=== PATIENT | female | born 2000 | race Two or more races ===

== ENCOUNTER 2021-07-08 09:39 | Emergency (ER) | payer OTHER ==
[~2021-07-08] VITALS: Ht 154.9 cm; Wt 64.4 kg
[2021-07-08] MEDS ORDERED: ACIDOPHILUS1 EAC3 (10:46)
[2021-07-08] MEDS ORDERED: DOXYLAMINE-PYR1 EACH (10:47)
== END 2021-07-08 19:23 | disposition home or self-care (01) ==
LOC: ER 09:39
DX: O23.42 Unspecified infection of urinary tract in pregnancy, second trimester (principal); N39.0 Urinary tract infection, site not specified; Z3A.16 16 weeks gestation of pregnancy

== ENCOUNTER 2021-08-09 16:28 | Outpatient (CLI) | payer OTHER ==
[~2021-08-09 16:28] MED LIST: ACIDOPHILUS1 EAC3; DOXYLAMINE-PYR1 EACH
== END 2021-08-09 17:32 | disposition home or self-care (01) ==
LOC: PRENATAL 16:28
PROVIDERS: ATTEND Obstetrics & Gynecology Maternal & Fetal Medicine
DX: O35.3XX0 Maternal care for (suspected) damage to fetus from viral disease in mother, not applicable or unspecified (principal); Z3A.20 20 weeks gestation of pregnancy

== ENCOUNTER 2021-11-29 10:50 | Outpatient (CLI) | payer OTHER | END 2021-11-29 12:14 | disposition home or self-care (01) | LOC: PRENATAL 10:50 | PROVIDERS: ATTEND Obstetrics & Gynecology Maternal & Fetal Medicine | DX: O26.849 Uterine size-date discrepancy, unspecified trimester (principal); O35.0XX0 Maternal care for (suspected) central nervous system malformation in fetus, not applicable or unspecified; Z3A.36 36 weeks gestation of pregnancy ==

== ENCOUNTER 2021-12-10 14:56 | Outpatient (CLI) | payer OTHER ==
[2021-12-10] MEDS ORDERED: ZOVIRAX400 MG PO (15:14)
== END 2021-12-10 20:56 | disposition home or self-care (01) ==
LOC: OBS/DEL 14:56
PROVIDERS: ATTEND Obstetrics & Gynecology
DX: O26.893 Other specified pregnancy related conditions, third trimester (principal); Z3A.38 38 weeks gestation of pregnancy; R10.2 Pelvic and perineal pain; D64.9 Anemia, unspecified

== ENCOUNTER 2021-12-19 15:04 | Inpatient (IN) | payer OTHER ==
[~2021-12-19] VITALS: Ht 157.5 cm; Wt 2.7 kg
[~2021-12-19 15:04] MED LIST changes: +ZOVIRAX400 MG PO
[2021-12-19] MEDS ORDERED: VALACYCLOVIR500 MG (22:52)
[2021-12-19] MEDS ORDERED: PRENATAL TABLE1 EAC1 (22:53)
[2021-12-19] MEDS ORDERED: IRON236 MG (22:53)
[2021-12-23] MEDS ORDERED: IBUPROFEN800 MG PO (07:48)
[2021-12-23] MEDS ORDERED: CEFADROXIL500 MG PO (07:49)
== END 2021-12-23 12:36 | disposition home or self-care (01) | DRG 788 ==
LOC: LDR 15:04 → OB/GYN 12-20 20:15
PROVIDERS: ADMIT Obstetrics & Gynecology; ATTEND Obstetrics & Gynecology
PROC: 4A1HXCZ Monitoring of Products of Conception, Cardiac Rate, External Approach (ICD-10-PCS; 2021-12-19)
PROC: 10D00Z1 Extraction of Products of Conception, Low, Open Approach (ICD-10-PCS; principal; 2021-12-20 15:00)
DX: O82 Encounter for cesarean delivery without indication (principal); Z3A.39 39 weeks gestation of pregnancy; Z37.0 Single live birth; Z20.822 Contact with and (suspected) exposure to COVID-19